=== PATIENT | female | born 1960 | race Caucasian/White ===

== ENCOUNTER 2023-10-08 16:45 | Outpatient (RCR) | payer BC, SELFPAY | END 2024-02-05 23:59 | disposition home or self-care (01) | PROVIDERS: PCP Student in an Organized Health Care Education/Training Program; Visit Provider Orthopaedic Surgery | DX: M19.131 Post-traumatic osteoarthritis, right wrist (principal); Z51.89 Encounter for other specified aftercare | CPT/HCPCS: 97033; 97035; 97140; 97165 ==

== ENCOUNTER 2024-11-02 16:15 | Outpatient (RCR) | payer BC, SELFPAY ==
--- OUTSIDE RECORDS SUMMARY | 2024-11-02 16:04 | XMS_ITS | Clinical Summary ---
Author Organization [facility] Address [address], [place] [address] Care Team Providers Care Investigations Consultant Name Role Phone Unavailable Primary Care Provider Unavailabl e Source Comments You are receiving this document as you are listed as the primary care provider,follow-up provider, or the patient has been referred to you for consultation.This is in compliance with the Medicare and[facility] Cent[facility]aid EHR Incentive Program,which states Providers who transition their patient to another setting of careor provider of care or refers their patient to another provider of care shouldprovide summary care record for each transition of care or referral. [facility] Allerg[facility] No known active allergies Medications Medication Sig Dispensed Refills Start Date End Date Status celecoxib (CELEBREX) 200 MG capsule Take 1 Capsule (200 mg) by mouth. 08/23/2023 Active hydroCHLOROthiazide (ORETIC) 25 MG tablet Take 1 Tablet (25 mg) by mouth daily. Active lisinopril (ZESTRIL) 5 MG tablet Take 1 Tablet (5 mg) by mouth daily. Active hydrOXYzine pamoate (VISTARIL) 25 MG capsule Take 1 Capsule (25 mg) by mouth three times a day as needed. 15 Capsule 1 08/07/2024 Active oxyCODONE (ROXICODONE) 5 MG immediate release tabletIndications:P ost-op pain Take 1-2 Tablets (5-10 mg) by mouth every 4 hours as needed for Pain (Severe Pain). This medication may be safely taken with ibuprofen or naproxen 25 Tablet 08/09/2024 Active Active Problems Problem Noted Date Diagnosed Date Scapholunate advanced collapse of right wrist Encounters Date Type Department Care Team Description 09/22/2024 9:50 AM [facility] Ancillary Procedure [facility] [address] [place] [id number] Jairo Colon MD Status post wrist surgery 09/22/2024 9:30 AM [facility] Office Visit [facility] [address] [address] Jairo Colon MD Status post wrist surgery (Primary Dx) 09/12/2024 Notes/Orders [facility] [address] [address] Jairo Colon MD 09/08/2024 Telephone [facility] [address] [address] Jairo Colon MD Paperwork (Protocol) 09/06/2024 Telephone [facility] [address] [place] [id number] Remington Simms, OTR/L QUESTIONS, GENERAL 08/21/2024 Telephone [facility] [address] [address] Jairo Colon MD QUESTIONS, GENERAL (Office Visit Notes) 08/21/2024 Telephone [facility] [address] [address] Jairo Colon MD 08/21/2024 Telephone [facility] [address] [address] Jairo Colon MD Orders Needed 08/18/2024 10:00 AM CDT Office Visit [facility] [address] [place] [address] Remington Simms, OTR/L Scapholunate advanced collapse of wrist, unspecified laterality (Primary Dx); Orthopedic aftercare 08/10/2024 Telephone [facility] [address] [address] Jairo Colon MD Questions 08/08/2024 Refill [facility] [address] [address] Jairo Colon MD Refill (oxycodone) 08/08/2024 Telephone [facility] [address] [place] [address] Jairo Colon MD Medication Questions 08/07/2024 12:03 PM CDT Anesthesia Event [facility] [address] [place] [address] Damion Quiroz MD Odash, Jocelyn M, INSTRUCTOR NURSE, STONE DECORATOR 08/07/2024 11:50 AM CDT - 08/07/2024 1:45 PM CDT Surgery [facility] [address] [address] Jairo Colon MD Scaphoid Excision and 4 bone fusion with distal radius bone graft 08/07/2024 10:55 AM CDT Ancillary Procedure Radiology [facility] [address] [place] [id number] 08/07/2024 9:53 AM CDT - 08/07/2024 2:54 PM CDT Hospital Encounter [facility] [address] [address] Jairo Colon MD Scapholunate advanced collapse of right wrist (Primary Dx) Discharge Disposition: Home 08/07/2024 6:00 AM CDT Ancillary Procedure [facility] [address] [place] [address] Jairo Colon MD Surgery, elective 08/07/2024 Notes/Orders [facility] [address] [address] Jairo Colon MD 08/04/2024 Notes/Orders [facility] [address] [address] Jairo Colon MD Surgery, elective (Primary Dx) from Last 3 Months Social History Tobacco Use Types Packs/Day Years Used Date Smoking Tobacco: Never Smokeless Tobacco: Never Tobacco Cessation:Counseling Given: Not Answered Alcohol Use Standard Drinks/Week Comments Yes 0 (1 standard drink = 0.6 oz pur e alcohol) 1 per night Sex and Gender Information Value Date Recorded Sex Assigned at Not on file Gender Identity Not on file Sexual Orientation Not on file Last Filed Vital Signs Vital Sign Reading Time Taken Comments Blood Pressure 119/61 08/07/2024 2:15 PM CDT Pulse 63 08/07/2024 2:15 PM CDT Temperature 36.9 C (98.4 F) 08/07/2024 1:50 PM CDT Respiratory Rate 16 08/07/2024 2:15 PM CDT Oxygen Saturation 96% 08/07/2024 2:15 PM CDT Inhaled Oxygen Concentration - - Weight 95.3 kg (210 lb) 08/04/2024 10:55 AM CDT Height 166.4 cm (5' 5.5) 08/04/2024 10:55 AM CD T Body Mass Index 34.41 08/04/2024 10:55 AM CDT Plan of Treatment Upcoming Encounters Date Type Department Care Team (Late st Contact Info) Description 11/03/2024 9:50 AM [facility]ER HAND Appointment [facility] [address] [place], [place] [phone] , Jairo Barreto MD [address] [facility] [place] [id number] Health Maintenance Due Date Last Done Comments Cervical Cancer Screening Due 1961 Colon Cancer Screening Plan Due 1960 Diabetes Screening- (based on age and BMI) 1961 Hep C Screening (Preventive Services) 1961 Adult Preventive Visit 1979 Cholesterol 2006 COVID-19 Vaccine ( season) 2024 08/23/2023, 08/03/2022, 02/13/2021, Additional history exists Influenza (#1) 2024 08/23/2023, 12/2021, 08/21/2021, Additional history exists Mammogram 08/11/2024 08/11/2023, 06/01, 06/16/2021, Additional history exists DTaP/Tdap/Td (3 - Tdap) 08/23/2033 08/23/2023, 06/06 RSV (1 - 1-dose 75+ series) 2036 Zoster/Shingles Completed 05/22/2021, 07/26/2020 HIV Screening (Preventive Services) Completed 08/23/2023 HepA Aged Out No longer eligi ble based on patient's age to complete this topic HepB Aged Out No longer eligi ble based on patient's age to complete this topic Hib Aged Out No longer eligi ble based on patient's age to complete this topic IPV (Polio) Aged Out No longer eligi ble based on patient's age to complete this topic MCV4 Aged Out No longer eligi ble based on patient's age to complete this topic Pneumococcal Aged Out No longer eligi ble based on patient's age to complete this topic Medical Devices Implanted Type Area Photo Booth Operator Device Identifier Shelf Expiration Date Model / Serial / Lot Cup Fusion 18mm 10h - [id number] Implanted:Qty: 1 on 08/07/2024 by Jairo Colon MD at [facility] DEV[facility] Right: [employer] [id number] / 0 / 0 Scr Xpode Lk 2.4x12 - [id number] Implanted:Qty: 3 on 08/07/2024 by Jairo Colon MD at [facility] DEV[facility] Right: [employer] [id number] / 0 / 0 Scr Xpode Lk 2.4x16 - [id number] Implanted:Qty: 2 on 08/07/2024 by Jairo Colon MD at [facility] DEV[facility] Right: [employer] [id number] / 0 / 0 Scr Xpode Lk 2.4x10 - [id number] Implanted:Qty: 2 on 08/07/2024 by Jairo Colon MD at [facility] DEV[facility] Right: [employer] [id number] / 0 / 0 Procedures Procedure Name Priority Date/Time Associated Diagnosis Comments XR WRIST RT 3 VIEWS + NAVICULAR Routine 09/22/2024 9:51 AM [facility] HAND Status post wrist surgery ZULEIMA FLUOROSCOPY UP TO 1 HOUR Routine 08/07/2024 1:27 PM CDT Surgery, elective BONE GRAFT FROM WRIST 08/07/2024 11:50 AM CDT Scapholunate advanced collapse of right wrist FUSION CARPAL JOINT 08/07/2024 1 1:50 AM CDT Scapholunate advanced collapse of right wrist EXCISION SCAPHOID 08/07/2024 11: 50 AM CDT Scapholunate advanced collapse of right wrist PERIPHERAL BLOCK Routine 08/07/2024 11:1 3 AM CDT US ANESTHESIA GUIDED BLOCK STAT 08/07/2024 10:50 AM CDT from Last 3 Months Results * XR Wrist Rt 3 Views + Navicular (09/22/2024 9:51 AM ST[facility]ER HAND) Anatomical Region Laterality Modality Upper Extremity, Wrist Digital R adiography Narrative 10/04/2024 9:48 AM STICKER HAND Radiographs of the right wrist. Indications: Status post reconstruction. Right wrist: The scaphoid has been surgically excised. There are multiple screws in the carpus. There appears to be progressive healing of the 4 bone fusion. Jairo Colon MD RAD GD * ZULEIMA Fluoroscopy Up To 1 Hour (08/07/2024 1:27 PM CDT) Anatomical Region Laterality Modality Computed Radiogr aphy Narrative 08/07/2024 1:28 PM CDT These images were obtained during a surgical procedure. Jairo Colon MD RAD NON-REPORTABLES * Peripheral Block (08/07/2024 11:13 AM CDT) Narrative EXTERNAL RESULTS - 08/07/2024 11:13 AM CDT Damion Quiroz MD 08/07/2024 11:14 AM Peripheral Block Performed by: Damion Quiroz MD Authorized by: Damion Quiroz MD Patient Location: Preop Start Time: 08/07/2024 11:09 AM End Time: 08/07/2024 11:14 AM Performed by: Anesthesiologist Body area of block: Upper Extremity Upper Extremity Blocks: Supraclavicular Laterality: Right Correct Position: Yes Correct Patient: Yes Correct Site: Yes Correct Procedure: Yes Correct Laterality: Yes Site Marked: Yes Checklist: risks and benefits discussed, patient agrees to proceed, IV checked, anesthesia consent, monitors/equipment checked, surgical consent and at surgeon's request Prep: Chloraprep, Hat and Mask Monitoring: Blood pressure, survey and mapping technician and continuous pulse oximetry Patient Position: Sitting Procedures: ultrasound guided Needle Type: Stimuplex Needle Length: 2 in Needle Gauge: 21 G Pain on Injection: No Blood aspirated?: No Bolus given as slow fractionated injection?: Yes Paresthesias?: No Ultrasound guided?: Yes Ultrasound image saved/archived?: Yes Ultrasound Interpretation: anatomic plane and expected location of nerve appear normal, local anesthetic visualized surrounding nerve, appropriate spread of the medication was noted in real time, no ultrasound evidence of intravascular and/or intraneural injection, needle tip was noted to be adjacent to the nerve/plexus identified and needle and nerve visualized Catheter placed?: No Procedure Comments: Performed and signed by Damion Quiroz MD Ropivacaine administered: ROPivacaine (NAROPIN) 0.5% (5 mg/mL) injection - Regional Nerve Block 30 mL - 08/07/2024 11:14:00 AM Damion Quiroz MD ANESTHESIA/AR EXTERNAL RESULTS * US Anesthesia Guided Block (08/07/2024 10:50 AM CDT) Anatomical Region Laterality Modality Ultrasound Narrative 08/07/2024 10:50 AM CDT If an Anesthesia block was performed please see the Anesthesia encounter for documentation. This procedure was performed and interpreted by the performing provider. Damion GARCIA from Last 3 Months
--- OUTSIDE RECORDS SUMMARY | 2024-11-02 16:04 | XMS_ITS | Clinical Summary ---
Author Organization [facility] Address [place], [place] [address] Care Team Providers Care Rock Worker Name Role Phone Isha Pereira Primary Care Provider [phone] Allergies No known active allergies Medications calcium carbonate-cholecalc iferol, 600mg-200 units, (CALCIUM 600 + D,3,) 600 mg(1,500mg) -200 unit tablet Take 1 tablet by mouth 2 times daily with meals. 0 0 Active multivitamin (MVI) tablet Take 1 tablet by mouth once daily. 0 0 Active cholecalciferol (VITAMIN D) 1,000 unit capsule 1-2 tabs daily 0 0 Active lisinopriL (PRINIVIL; ZESTRIL) 5 mg tabletIndications:H TN (hypertension) Take 1 Tablet (5 mg) by mouth once daily. 90 Tablet 3 4 Active hydroCHLOROthiazide 25 mg tabletIndications:E victor hugo, unspecified type Take 1 Tablet (25 mg) by mouth once daily. 90 Tablet 3 4 Active celecoxib (CELEBREX) 200 mg capsuleIndications: Primary osteoarthritis, unspecified site Take 1 Capsule (200 mg) by mouth once daily with a meal. 90 Capsule 4 Active atorvastatin (LIPITOR) 20 mg tabletIndications:H yperlipidemia, unspecified hyperlipidemia type Take 1 Tablet (20 mg) by mouth at bedtime. 90 Tablet 3 Active Active Problems Problem Noted Date Diagnosed Date Hyperlipidemia 09/25/2024 Primary hypertension 08/02/2024 Hypertriglyceridemia 06/16/2018 Alina-menopause 04/02/2015 Vitamin D deficiency 10/30/2009 Family history of malignant neoplasm of gastrointestinal tract 02/06/2009 Overview (02/15/2019): Colonoscopy 01/2014 diverticulosis repeat in 5 years Colonoscopy 01/2019 diverticulosis, repeat in 5 years Resolved Problems Problem Noted Date Diagnosed Date Resolved Date Edema 02/14/2015 09/25/2024 Hematuria 04/29/2011 09/25/2024 Sebaceous cyst 02/14/2009 09/25/2024 Encounters Date Type Department Care Team Description 09/25/2024 9:10 AM REVIEWER SALES Office Visit [facility] [address] [place] [address] Sunshine Doss, Physical (63 year old, no concerns); Immunization/Injectio n 09/25/2024 8:20 AM REVIEWER SALES Ancillary Procedure [facility] [address] [place] [address] 09/25/2024 Travel 09/11/2024 Telephone [facility] [address] [place] [address] Isha Pereira PA Referral (COLONOSCOPY ) 08/02/2024 3:00 PM CDT Office Visit [facility] [address] [place] [address] Doug Gross, Preoperative Exam (08/07/24) 08/02/2024 Travel from Last 3 Months Immunizations Name Administration Dates Next Due COVID-19 VACCINE SPIKEVAX (M ODERNA 50MCG/0.5ML) 12YO+ PFS 08/23/2023 COVID-19 vaccine (Pfizer-Bio NTech 30mcg/0.3mL) 12YO+ BIVALENT PF, MDV 08/03/2022 INFLUENZA, IIV3 PF (AGE >= 6 MO) 09/25/2024 Influenza RIV4 (Age 18+ Year s) PRESERV FREE 07/26/2020 Influenza, IIV4 08/23/2023, 2,08/20/2021, 016 Tdap 08/23/2023,06/06/2013 Zoster (Shingrix-RZV, recombinant) 05/22/2021, Family History Medical History Relation Name Comments Heart Disease Brother 1 age 33 Good Health Brother 2 Good Health Brother 3 Liver disease Father Stroke Maternal Grandfather Cancer-breast Mother Cancer-colon Mother Heart Disease Mother cabg Hypertension Mother Diabetes type II Sister Relation Name Status Comments Brother 1 Brother 2 Alive Brother 3 Alive Father Maternal Grandfather Maternal Grandmother Mother Paternal Grandfather Paternal Grandmother Sister Alive Social History Tobacco Use Types Packs/Day Years Used Date Smoking Tobacco: Never Smokeless Tobacco: Never Tobacco Cessation:Counseling Given: Yes Alcohol Use Standard Drinks/Week Comments Yes 6 (1 standard drink = 0.6 oz pur e alcohol) Drinks 2-3x per week, socially C Utilities Answer Date Recorded Do you have trouble paying f or utilities (for example, heat, electricity, water, phone)? Yes 09/25/2024 PHQ-2 Answer Date Recorded PHQ-2 TOTAL SCORE 0 09/25/2024 Social Connections Answer Date Recorded Do you often feel lonely or isolated from those around you? 0 09/25/2024 Financial Resource Strain Answer Date R ecorded Difficulty of Paying Living Expenses 3 09/25/2024 Difficulty of Paying Living Expenses Not on file 09/25/2024 Food Insecurity Answer Date Recorded Do you worry your food will run out before you are able to buy more? 1 09/25/2024 Transportation Needs Answer Date Record ed Does lack of transportation keep you from medica l appointments? 1 09/25/2024 Does lack of transportation keep you from work, meetings or getting things that you need? 1 09/25/2024 Housing Stability Answer Date Recorded What is your housing situation today? 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 [place] Not on file Not on file Not on file Obstetrics History Last Filed Vital Signs Vital Sign Reading Time Taken Comments Blood Pressure 139/82 09/25/2024 9:41 AM REVIEWER SALES Pulse 63 09/25/2024 9:41 AM REVIEWER SALES Temperature 36.7 C (98.1 F) 06/15/2018 11:04 AM CDT Respiratory Rate 24 10/23/2009 9:35 AM REVIEWER SALES Oxygen Saturation 96% 08/02/2024 3:07 PM CDT Inhaled Oxygen Concentration - - Weight 92.4 kg (203 lb 9.6 oz) 09/25/2024 9:07 A M REVIEWER SALES Height 163.6 cm (5' 4.41) 09/25/2024 9:07 AM CS T Body Mass Index 34.51 09/25/2024 9:07 AM REVIEWER SALES Plan of Treatment Health Maintenance Due Date Last Done Comments Pneumococcal series for age 50+ (1 of 1 - PCV) 2011 RSV vaccine for adults or (1 - Risk 60-74 years 1-dose series) 2021 Colonoscopy through age 75 02/16/202402/15, 02/15/2019, 02/15/2019, Additional history exists COVID-19 vaccine series ( season) 2024 08/23/2023, 08/03/2022, 02/13/2021, Additional history exists Pap test for age 21-65 08/19/2025 , 08/19/2020, 06/10/2017, Additional history exists BMI (ht and wt on same day) for age 18+ 09/25/2025 09/25/2024, 08/02/2024, 08/23/2023, Additional history exists Depression screening for age 12+ 09/25/2025 09/25/2024, 08/23/2023, 08/19/2022, Additional history exists Mammogram for age 45-75 09/25/2025 09/25/20 24, 08/11/2023, 06/10/2022, Additional history exists Lipids for age 45-75 09/25/2029 09/25/2024, 08/23/2023, 08/20/2021, Additional history exists Tetanus booster 08/23/2033 08/23/2023, 06/06/2013 Hepatitis C screening for ag e 18-79 Completed 08/19/2020 Zoster (shingles) series for age 50+ Completed 05/22/2021, 07/26/2020 HIV for age 15-65 Completed 08/23/2023 Tdap Completed 08/23/2023, 06/06/2013 Influenza for age 50-64 Completed 09/25/20 24, 08/23/2023, 08/03/2022, Additional history exists Procedures Procedure Name Priority Date/Time Associated Diagnosis Comments BASIC METABOLIC PANEL Routine 09/25/2024 9:54 AM REVIEWER SALES HTN (hypertension) LIPID PANEL W REFLEX MEASURED LDL Routine 09/25/2024 9:54 AM REVIEWER SALES Hyperlipidemia, unspecified hyperlipidemia type AST (SGOT) Routine 09/25/2024 9:54 AM REVIEWER SALES Hyperlipidemia, unspecified hyperlipidemia type ALT (SGPT) Routine 09/25/2024 9:54 AM REVIEWER SALES Hyperlipidemia, unspecified hyperlipidemia type HEMOGLOBIN A1C Routine 09/25/2024 9:54 AM REVIEWER SALES Class 1 obesity with body mass index (BMI) of 34.0 to 34.9 in adult, unspecified obesity type, unspecified whether serious comorbidity present XR MAMMO SUMMER BILAT SCREEN Routine 09/25/2024 8:31 AM REVIEWER SALES Visit for screening mammogram POTASSIUM Routine 08/02/2024 3:51 PM CDT Preop general physical exam ANTI HIV 1/2 Routine 08/23/2023 8:22 AM CDT Encounter for screening for human immunodeficiency virus (HIV) ANTI HCV Routine 08/19/2020 9:36 AM CDT Need for hepatitis C screening test RETAIL MERCHANDISING COORDINATOR THIN PREP PAP SCREEN IMAGED Routine 08/19/2020 9:10 AM CDT Screening for cervical cancer COLONOSCOPY 02/15/2019 8:50 AM CDT from Last 3 Months or Most Recently Relevant to Health Maintenance Results * HEMOGLOBIN A1C (09/25/2024 9:54 AM REVIEWER SALES) HEMOGLOBIN A1C 5.4 <5.7 % of total Hgb [facility] Comment: For the purpose of screening for the presence of diabetes: <5.7% Consistent with the absence of diabetes 5.7-6.4% Consistent with increased risk for diabetes (prediabetes) > or =6.5% Consistent with diabetes This assay result is consistent with a decreased risk of diabetes. Currently, no consensus exists regarding use of hemoglobin A1c for diagnosis of diabetes in children. According to [place] Diabetes Association (ADA) guidelines, hemoglobin A1c <7.0% represents optimal control in non- diabetic patients. Different metrics may apply to specific patient populations. Standards of Medical Care in Diabetes(ADA). Blood BLOOD SPECIMEN / Unknown 09/25/2024 9:54 AM REVIEWER SALES 09/25/2024 9:54 AM REVIEWER SALES Sunshine Doss DO CHEMISTRY Final Resu lt Somewhere [facility] [address] [place] [address], [facility] [address] [place] [address] * (ABNORMAL) LIPID PANEL W REFLEX MEASURED LDL (09/25/2024 9:54 AM REVIEWER SALES) CHOLESTEROL, TOTAL 242(H) <200 mg/dL [facility] HDL CHOLESTEROL 59 > OR = 50 mg/dL [facility] TRIGLYCERIDES 192(H) <150 mg/dL [facility] LDL-CHOLESTEROL 150(H) mg/dL (calc) [facility] Comment: Reference range: <100 Desirable range <100 mg/dL for primary prevention; <70 mg/dL for patients with CHD or diabetic patients with > or = 2 CHD risk factors. LDL-C is now calculated using the Anderson-Ayers calculation, which is a validated novel method providing better accuracy than the Friedewald equation in the estimation of LDL-C. Anderson SS et al. MIR. 2013;310(19): 1625-7930 (http://education.LEAFER/faq/YSD529) CHOL/HDLC RATIO 4.1 <5.0 (calc) [facility] NON HDL CHOLESTEROL 183(H) <130 mg/dL (calc) [facility] Comment: For patients with diabetes plus 1 major ASCVD risk factor, treating to a non-HDL-C goal of <100 mg/dL (LDL-C of <70 mg/dL) is considered a therapeutic option. Blood BLOOD SPECIMEN / Unknown 09/25/2024 9:54 AM REVIEWER SALES 09/25/2024 9:54 AM REVIEWER SALES Sunshine Doss CHEMISTRY Final Resu lt Performing Organization Address [facility]/ZIP Co de Phone Number [facility] [address] [facility] [place] [address], [place] [phone] [email or web address] [address] [place] [address] * ALT (SGPT) (09/25/2024 9:54 AM REVIEWER SALES) ALT 17 6 - 29 U/L [facility] Blood BLOOD SPECIMEN / Unknown 09/25/2024 9:54 AM REVIEWER SALES 09/25/2024 9:54 AM REVIEWER SALES Sunshine Doss CHEMISTRY Final Resu lt Somewhere [facility] [address] [place] [address], [place] [phone] [facility] [address] [place] [address] * AST (SGOT) (09/25/2024 9:54 AM REVIEWER SALES) AST 20 10 - 35 U/L [facility] Blood BLOOD SPECIMEN / Unknown 09/25/2024 9:54 AM REVIEWER SALES 09/25/2024 9:54 AM REVIEWER SALES Sunshine Doss DO CHEMISTRY Final Resu lt Performing Organization Address [facility]/ZIP Co de Phone Number [facility] [address] [place] [address], [facility] [address] [place] [address] * BASIC METABOLIC PANEL (09/25/2024 9:54 AM REVIEWER SALES) Pathologist [facility] GLUCOSE 94 65 - 99 mg/dL [facility] Comment: Fasting reference interval UREA NITROGEN (BUN) 12 7 - 25 mg/dL [facility] CREATININE 0.58 0.50 - 1.05 mg/dL [facility] EGFR 102 > OR = 60 mL/min/1. 73m2 [facility] BUN/CREATININE RATIO SEE NOTE: 6 - 22 (calc) [facility] Comment: Not Reported: BUN and Creatinine are within reference range. SODIUM 141 135 - 146 mmol/L [facility] POTASSIUM 4.5 3.5 - 5.3 mmol/L [facility] CHLORIDE 101 98 - 110 mmol/L [facility] CARBON DIOXIDE 32 20 - 32 mmol/L [facility] ELECTROLYTE BALANCE 8 7 - 17 mmol/L (calc) [facility] CALCIUM 10.3 8.6 - 10.4 mg/dL [facility] Blood BLOOD SPECIMEN / Unknown 09/25/2024 9:54 AM REVIEWER SALES 09/25/2024 9:54 AM REVIEWER SALES Sunshine Doss DO CHEMISTRY Final Resu lt Performing Organization Address [facility]/ZIP Co de Phone Number [facility] [address] [facility] [place] [address], [facility] [address] [place] [address] * XR MAMMO SUMMER BILAT SCREEN (09/25/2024 8:31 AM REVIEWER SALES) Anatomical Region Laterality Modality BREASTS, Breast Left, Breast Right Bilateral Mammography Impressions 09/25/2024 3:22 PM REVIEWER SALES There is no radiographic evidence for malignancy. Recommend annual mammograms. MAMMOGRAM ASSESSMENT: ACR 1 Negative PATIENTS: You will also receive a letter with your examination results in an easy to read format. If you have questions about your results, please contact your referring provider. Narrative 09/25/2024 3:22 PM REVIEWER SALES For Patients: As a result of the Cures Act, medical imaging exams and procedure reports are released immediately into your electronic medical record. You may view this report before your referring provider. If you have questions, please contact your health care provider. XR MAMMO SUMMER BILAT SCREEN [[id number]] CLINICAL HISTORY: This is an asymptomatic 63 y.o. patient. INDICATION FOR EXAM: Mammogram Screening. TECHNIQUE: CC & MLO views were obtained. This study was evaluated with the assistance of Computer-Aided Detection. Breast Tomosynthesis was used in interpretation. COMPARISON FILM: Yes 08/11/23 [facility] 06/10/22 [facility] FINDINGS: There are scattered areas of fibroglandular density. There are no dominant masses, suspicious micro calcifications or areas of architectural distortion. Isha Pereira PA MAMMO Final Res ult * POTASSIUM (08/02/2024 3:51 PM CDT) POTASSIUM 4.5 3.5 - 5.3 mmol/L [email or web address] Blood BLOOD SPECIMEN / Unknown 08/02/2024 3:51 PM CDT 08/02/2024 3:52 PM CDT Doug Gross DO CHEMISTRY Final Result Somewhere [facility] [address] [place] [address], [facility] [address] [place] [address] * ANTI HIV 1/2 (08/23/2023 8:22 AM CDT) [facility] HIV-1/HIV-2 SCREEN Non-Reacti ve Non-Reacti ve 08/23/2023 3:58 PM CDT [facility] Comment:HIV-1 p24 and HIV-1/ HIV-2 Ab Not Detected. Blood BLOOD SPECIMEN / Unknown Venipuncture / Unknown 08/23/2023 8:22 AM CDT 08/23/2023 8:22 AM CDT Isha SEARS SEND OUTS Final Res ult [facility] [address] [place] [address], [place] * ANTI HCV (08/19/2020 9:36 AM CDT) [facility] HEPATITIS C ANTIBODY Non-React timothy Non-React timothy 08/19/2020 5:17 PM CDT [facility] Comment:Antibodies to HCV no t detected; does not exclude the possibility of exposure to HCV. Blood BLOOD SPECIMEN / Unknown Venipuncture / Unknown 08/19/2020 9:36 AM CDT 08/19/2020 9:36 AM CDT us Diamond Hardwick MD SEND OUTS Final Result [facility] [address] [place] [address], [place] * RETAIL MERCHANDISING COORDINATOR THIN PREP PAP SCREEN IMAGED [[id number]] (08/19/2020 9:10 AM CDT) [facility] Case Report Gynecologic Cytology Report Case: [id number] Authorizing Provider: Diamond Hardwick MD Collected: 08/19/2020 0910 Ordering Location: [facility] Received: 08/19/2020 1214 Clinic First Screen: Hetal Garza Specimen: RETAIL MERCHANDISING COORDINATOR ThinPrep Vial Screening, Cervical 08/24/2020 12:50 PM CDT [facility] INTERPRETATION/ RESULT NEGATIVE FOR INTRAEPITHELIAL LESION OR MALIGNANCY (NIL) (none) 08/24/2020 12:50 PM CDT [facility] IMEN ADEQUACY Satisfactory for evaluation Endocervical component present 08/24/2020 12:50 PM CDT [facility] HPV REQUEST HPV and PAP 08/24/2020 12:50 PM CDT [facility] Date of LMP n/a 08/24/2020 12:50 PM CDT [facility] Last Pap Date 06/10/17 08/24/2020 12:50 PM CDT [facility] Last Pap Result NIL 0 12:50 PM CDT [facility] Abnormal Pap or Pelican Bx in last 5 years No 08/24/2020 12:50 PM CDT [facility] Menstrual Status Postmenopausal 08/24/2020 12:50 PM CDT [facility] Pelican Bx Done Today No 08/24/2020 12:50 PM CDT [facility] [employer] [facility] Additional Information None given 08/24/2020 12:50 PM CDT [facility] Comment: Cytology is screened at [facility] - [address], [place] [address] and [facility] - [address], [place] [address] and [facility] - [address], [place] [address] [facility]ed at [facility] - [address], [place] [address] Automated Review Successful 08/24/2020 12:50 PM CDT [facility] Comment:Specimen processed s uccessfully by automated bleach range operator device, ThinPrep Imaging System, [employer] ANCILLARY TESTING RETAIL MERCHANDISING COORDINATOR HPV Ordered, Please see separate report 08/24/2020 12:50 PM CDT [facility] Note The pap test is a screening technique, not a diagnostic procedure. It is used primarily to screen for squamous cancers and precursor lesions. Published studies have shown that it is subject to both false negative and false positive results. The pap test should not be used as the sole means to diagnose or exclude pre-malignant and malignant lesions. 08/24/2020 12:50 PM CDT [facility] Other (Cervical) Non-Blood / Unknown 08/19/2020 9:10 AM CDT 08/19/2020 12:14 PM CDT Diamond Hardwick MD PATHOLOGY/CYTOLOGY Final Resu lt [facility] [address] [place] [address], [place] * COLONOSCOPY (02/15/2019 8:50 AM CDT) 02/15/2019 8:50 AM CDT Narrative Transcriptions Anderson Langley MD - 02/15/2019 9:22 AM CDT Patient Name: Yashira Erickson Procedure Date: 02/15/2019 Gender: Female Date of : 1960 Admit Type: Outpatient Procedure: Colonoscopy Proceduralist: Anderson Langley MD , Tricia Stiles (Nurse) Indications/Pre-Op Diagnosis: Screening in patient at increased risk:Family history of 1st-degree relative withcolorectal cancer before age 60 years, Lastcolonoscopy: January 2014 Medications: Fentanyl 100 micrograms IV, Midazolam 2 mgIV, The level of sedation administered wasmoderate Procedure Description: The patient had risks, benefits and alternatives explained to andgave informed consent. The patient had a stable cardiopulmonary status and judged an adequate candidate for conscious sedation. The Colon [id number] was passed through the anus and advancedto the cecum, identified by appendiceal orifice and ileocecal valve. The colonoscopy was performed without difficulty. The patient toleratedthe procedure well. The quality of the bowel preparation was good. The ileocecal valve, appendiceal orifice, and rectum were photographed. Complications: No immediate complications. Estimated Blood Loss & Specimen: Estimated blood loss: none. Specimen collected - None Findings: The perianal and digital rectal examinations were normal. Many small and large-mouthed diverticula were found in the sigmoidcolon and descending colon. The exam was otherwise without abnormality on direct and retroflexion views. Impressions/Post-Op Diagnosis: - Diverticulosis in the sigmoid colon and in the descending colon. - The examination was otherwise normal on direct and retroflexionviews. - No specimens collected. Recommendation: - Patient has a contact number available for emergencies. The signsand symptoms of potential delayed complications were discussed with the patient. Return to normal activities tomorrow. Written discharge instructions were provided to the patient. - Resume previous diet. - Continue present medications. - Repeat colonoscopy in 5 years for screening purposes. Moderate Sedation: Moderate (conscious) sedation was administered by the endoscopy nurse and supervised by the endoscopist. The following parameters were monitored: oxygen saturation, heart rate, respiratory rate, blood pressure, adequacy of pulmonary ventilation and reponse to care. Please [facility] flowsheets and nursing notes for moderate sedation details. Total physician intraservice time was 15 minutes. Anderson Langley MD 02/15/2019 9:21:52 AM This report has been signed electronically. Note Initiated On: 02/15/2019 8:50 AM Procedure Code(s): --- Professional --- 07624, Colonoscopy, flexible; diagnostic, including collection of specimen(s) bybrushing or washing, when performed (separateprocedure) Diagnosis Code(s): --- Professional --- Z80.0, Family history of malignant neoplasmof digestive organs K57.30, Diverticulosis of large intestine without perforation or abscess withoutbleeding CPT copyright 2017 [place] [employer]. All rights reserved. The codes documented in this report are preliminary and upon corduroy brusher operator reviewmay be revised to meet current compliance requirements. Scope In: 9:00:29 AM Scope Withdrawal Time 0 hours 7 minutes 15 seconds Scope Out: 9:14:37 AM us Anderson Langley MD PROCEDURE ORD Final Res ult from Last 3 Months or Most Recently Relevant to Health Maintenance Insurance [facility] Care Teams Rock Worker Relationship Specialty Start Date End Date Ihsa Pereira PA [address] [place] [address] PCP - General Physician Railroad Accountant 08/11/22
--- OUTSIDE RECORDS SUMMARY | 2024-11-02 16:05 | XMS_ITS | Encounter Summary ---
Author Organization [facility] Address [address] [place] [address] Care Team Providers Care Metal Machine Operator Name Role Phone Unavailable Primary Care Provider Unavailabl e Reason for Visit * Reason Comments QUESTIONS, GENERAL Encounter Details Date Type Department Care Team (Late st Contact Info) Description 09/06/2024 Telephone Dedicated Specialty Scheduling Rehab [address] [place] [address] Remington Simms, OTR/L [address] [facility] [place], [place] [phone] QUESTIONS, GENERAL Social History Tobacco Use Types Packs/Day Years Used Date Smoking Tobacco: Never Smokeless Tobacco: Never Alcohol Use Standard Drinks/Week Comments Yes 0 (1 standard drink = 0.6 oz pur e alcohol) 1 per night Sex and Gender Information Value Date Recorded Sex Assigned at Not on file Gender Identity Not on file Sexual Orientation Not on file documented as of this encounter Nursing Notes * Jennyfer Rene O - 09/06/2024 10:55 AM CST Please detail the reason for your call: Meri is calling on behalf of the patient. On aug.07 patient had a Right Scaphoid Excision. What is the care and How long does patient need to be in the splint? Is it okay to leave a detailed message on your voicemail? Yes *The therapist will get back to you within three business days. If your call is related to symptomsand you have concerns please contact your Primary Care or referring provider. EZE ARTIST documented in this encounter Plan of Treatment Upcoming Encounters Date Type Department Care Team (Late st Contact Info) Description 11/03/2024 9:50 AM TRAPEZE ARTIST Appointment [facility] [place] [address] [facility] [place] [address] Jairo Colon MD [address] [facility] [place] [phone] documented as of this encounter Visit Diagnoses Not on filedocumented in this encounter
--- OUTSIDE RECORDS SUMMARY | 2024-11-02 16:05 | XMS_ITS | Encounter Summary ---
Author Organization [facility] Address [address], [place] [address] Care Team Providers Care Asbestos Handler Name Role Phone Unavailable Primary Care Provider Unavailabl e Encounter Details Date Type Department Care Team (Late st Contact Info) Description 08/07/2024 Notes/Orders [facility] [address] [phone] Jairo Colon MD [address] [place] [address] [place] [id number] Social History Tobacco Use Types Packs/Day Years Used Date Smoking Tobacco: Never Smokeless Tobacco: Never Alcohol Use Standard Drinks/Week Comments Yes 0 (1 standard drink = 0.6 oz pur e alcohol) 1 per night Sex and Gender Information Value Date Recorded Sex Assigned at Not on file Gender Identity Not on file Sexual Orientation Not on file documented as of this encounter Plan of Treatment Upcoming Encounters Date Type Department Care Team (Late st Contact Info) Description 11/03/2024 9:50 AM GRAIN ELEVATOR AGENT Appointment [facility] [address] [place] [address] Jairo MD [address] [place] [address] [place] [phone] documented as of this encounter Visit Diagnoses Not on filedocumented in this encounter
--- OUTSIDE RECORDS SUMMARY | 2024-11-02 16:05 | XMS_ITS | Encounter Summary ---
Author Organization [facility] Address [address], [place] [address] Care Team Providers Care Plaster And Stucco Worker Name Role Phone Unavailable Primary Care Provider Unavailabl e Reason for Visit * Procedure/Equipment (Routine) - Incomplete Specialty Diagnoses / Procedures Referred By Contac t Referred To Contact Diagnoses Status post wrist surgery Procedures XR Wrist Rt 3 Views + Navicular Jairo MD [address] [place] [address] [place] [address] Referral ID Status Reason Start Date Expiration Date V isits Requested Visits Authorized [id number] Incomplete 09/22/2024 12/22/2025 1 1 Encounter Details Date Type Department Care Team (Late Contact Info) Description 09/22/2024 9:50 AM BOOM BOSS Ancillary Procedure [facility] [address] [place] [address] Jairo MD [address] [facility] [place] [address] Status post wrist surgery Social History Tobacco Use Types Packs/Day Years [...] Encounters Date Type Department Care Team (Late Contact Info) Description 11/03/2024 9:50 AM BOOM BOSS Appointment [facility] [place] [address] [place] [address] Jairo Colon MD [address] [facility] [place] [phone] documented as of this encounter Procedures Procedure Name Priority Date/Time Associated Diagnosis Comments XR WRIST RT 3 VIEWS + NAVICULAR Routine 09/22/2024 9:51 AM BOOM BOSS Status post wrist surgery documented in this encounter Results * XR Wrist Rt 3 Views + Navicular (09/22/2024 9:51 AM BOOM BOSS) Anatomical Region Laterality Modality Upper Extremity, Wrist Digital R adiography Narrative 10/04/2024 9:48 AM BOOM BOSS Radiographs of the right wrist. Indications: Status post reconstruction. Right wrist: The scaphoid has been surgically excised. There are multiple screws in the carpus. There appears to be progressive healing of the 4 bone fusion. Jairo Colon MD RAD GD documented in this encounter Visit Diagnoses Diagnosis Status post wrist surgery Other postprocedural status documented in this encounter
--- OUTSIDE RECORDS SUMMARY | 2024-11-02 16:05 | XMS_ITS | Encounter Summary ---
Author Organization [facility] Address [address], [place] [address] Care Team Providers Care Security Site Supervisor Name Role Phone Unavailable Primary Care Provider Unavailabl e Reason for Referral * Procedure/Equipment (Routine) - Incomplete Specialty Diagnoses / Procedures Referred By Contac t Referred To Contact Diagnoses Status post wrist surgery Procedures XR Wrist Rt 3 Views + Navicular Jairo Colon MD [address] [place] [address] [place] [address] Referral ID Status Reason Start Date Expiration Date V isits Requested Visits Authorized [id number] Incomplete 09/22/2024 12/22/2025 1 1 TAL ASSET SPECIALIST Reason for Visit * Reason Comments Post-Op Check Right wrist Encounter Details Date Type Department Care Team (Late st Contact Info) Description 09/22/2024 9:30 AM DIGITAL ASSET SPECIALIST Office Visit [facility] [address] [facility] [place], [place] [phone] Jario Colon MD [address] [facility] [place] [phone] Status post wrist surgery (Primary Dx) Social History Tobacco Use Types Packs/Day Years Used Date Smoking Tobacco: Never Smokeless Tobacco: Never Alcohol Use Standard Drinks/Week Comments Yes 0 (1 standard drink = 0.6 oz pur e alcohol) 1 per night Sex and Gender Information Value Date Recorded Sex Assigned at Not on file Gender Identity Not on file Sexual Orientation Not on file documented as of this encounter Patient Instructions * Patient Instructions* Sherry Oleary - 09/22/2024 9:30 AM DIGITAL ASSET SPECIALIST Thank you for Choosing [facility] for your health care visit today. Dr. Jairo Colon MD Hand & Upper Extremity Surgeon Medication Requests: Prescriptions are not filled on weekends or on weekdays after 3:00 PM. For all medication refills: Request a refill using MyChart or contact your pharmacy. What is Know Your Cost? Know Your Cost is a service for patients and patient/members to call and receive personalized cost information and estimates across our care group. The phone number is (COST) Wednesday - Wednesday 8 AM to 5 PM Advanced Imaging Scheduling: To schedule an MRI, Ultrasound, or Image guided injection at [facility] please call [phone]. To schedule an MRI or CT at a [facility] location please call [phone]. [employer] [address] [place] [address] (Phone) Email: [email or web address] Release of Information: Radiology/Imaging [address] [place] [address] (Phone) Health Information Management [address] [place] [address] (Phone) [employer] Medication Requests: Prescriptions are not filled on weekends or on weekdays after 3:00 PM. For all medication refills: Request a refill using MyChart or contact your pharmacy. What is Know Your Cost? Know Your Cost is a service for patients and patient/members to call and receive personalized cost information and estimates across our care group. The phone number is (COST) Wednesday 8 AM to 5 PM Advanced Imaging Scheduling: To schedule an MRI, Ultrasound, or Image guided injection at [facility] please call [phone]. To schedule an MRI or CT at a [facility] location please call [phone]. [employer] [address] [place] [address] (Phone) Email: [email or web address] Release of Information: Radiology/Imaging [address] [place] [address] (Phone) Health Information Management [address] [place] [address] (Phone) [employer] TAL ASSET SPECIALIST documented in this encounter Progress Notes * Jairo Colon MD - 09/22/2024 9:30 AM CST Subjective: Yashira is 6 weeks status post right scaphoid excision and 4 bone fusion, date of surgery 08/07/2024. Her preoperative pain is gone and she has minimal postsurgical discomfort. Range of motion is improving. She is happy that she had the surgery. Objective: The surgical incision was well healed and nontender. Wrist motion was fair. Digital motion was full. Radiographic report: I ordered and independently reviewed radiographs of the right wrist. Indications: Status post reconstruction. Right wrist: The scaphoid has been surgically excised. There are multiple screws in the carpus. There appears to be progressive healing of the 4 bone fusion. Assessment: Status post right scaphoid excision with 4 bone fusion. Plan: Continue with rehab program. Review in 6 weeks with repeat radiographs. TAL ASSET SPECIALIST documented in this encounter Plan of Treatment Upcoming Encounters Date Type Department Care Team (Late st Contact Info) Description 11/03/2024 9:50 AM DIGITAL ASSET SPECIALIST Appointment [facility] [address] [place] [address] Jairo Colon MD [address] [place] [address] [place] [phone] documented as of this encounter Results * XR Wrist Rt 3 Views + Navicular (09/22/2024 9:51 AM DIGITAL ASSET SPECIALIST) Anatomical Region Laterality Modality Upper Extremity, Wrist Digital R adiography Narrative 10/04/2024 9:48 AM DIGITAL ASSET SPECIALIST Radiographs of the right wrist. Indications: Status post reconstruction. Right wrist: The scaphoid has been surgically excised. There are multiple screws in the carpus. There appears to be progressive healing of the 4 bone fusion. Jairo Colon MD RAD GD documented in this encounter Visit Diagnoses Diagnosis Status post wrist surgery- Primary Other postprocedural status Status post wrist surgery Other postprocedural status documented in this encounter
--- OUTSIDE RECORDS SUMMARY | 2024-11-02 16:05 | XMS_ITS | Encounter Summary ---
Author Organization [facility] Address [address] [address] Care Team Providers Care Magnet Valve Assembler Name Role Phone Unavailable Primary Care Provider Unavailabl e Encounter Details Date Type Department Care Team (Late st Contact Info) Description 09/12/2024 Notes/Orders [facility] [address] [phone] Jairo Colon MD [address] [place] [address] [place] [phone] Social History Tobacco Use Types Packs/Day Years [...] st Contact Info) Description 11/03/2024 9:50 AM BLOOD BANK TECHNOLOGIST Appointment [facility] [address] [place] [address] Jairo MD [address] [place] [address] [place] [phone] documented as of this encounter Visit Diagnoses Not on filedocumented in this encounter
--- OUTSIDE RECORDS SUMMARY | 2024-11-02 16:05 | XMS_ITS | Encounter Summary ---
Author Organization [facility] Address [address], [place] [address] Care Team Providers Care Proof Tester Name Role Phone Unavailable Primary Care Provider Unavailabl e Encounter Details Date Type Department Care Team (Late st Contact Info) Description 08/21/2024 Telephone [facility] [place] [address] [place] [phone] Jairo MD [address] [place] [address] [place] [phone] Social History Tobacco Use Types Packs/Day Years [...] st Contact Info) Description 11/03/2024 9:50 AM COAGULATOR Appointment [facility] [address] [place] [phone] Jairo MD [address] [place] [address] [place] [phone] documented as of this encounter Visit Diagnoses Not on filedocumented in this encounter
== END 2024-11-03 08:42 | disposition home or self-care (01) ==
PROVIDERS: PCP Student in an Organized Health Care Education/Training Program; Visit Provider Orthopaedic Surgery
DX: M19.131 Post-traumatic osteoarthritis, right wrist (principal); Z51.89 Encounter for other specified aftercare
CPT/HCPCS: 97110; 97140; 97165; X5282